=== PATIENT | male | born 1935 | race Caucasian/White ===

== ENCOUNTER 2024-02-13 08:40 | Emergency (ER) | payer OTHER, SELFPAY ==
--- NOTE | 2024-02-13 09:01 | XR_ITS ---
WS: [id number] Portable AP upright chest, 02/13/2024 Clinical Data: Screening Comparison: None. Findings: No nodules, masses or effusions are seen. The heart is normal. The pulmonary vascularity is not increased. No pneumonia or pneumothorax is seen. The diaphragms are flattened. The aortic arch a nd descending thoracic aorta show calcification and tortuosity. Impression: Hyperinflation and atherosclerosis.
[2024-02-13 09:10] VITALS: BP 136/74; PULSE 61; RESP 15; O2SAT 92
--- NOTE | 2024-02-13 09:26 | ED.C_ITS ---
HPI - Psych 2 General: Chief Complaint: Psychiatric Symptoms Stated Complaint: combative Time Seen by Provider: 02/13/24 09:01 Source: patient Mode of arrival: ambulatory History of Present Illness: 88-year-old male with a history of demen tia has been aggressive and combative at times. Has been hitting staff and other residents resistive to care not taking his medications. Patient arrives here he is not combative or aggressive he does not answer any questions he will whisper a few answers and shake his head yes and no but most of the time he is just not conversive. He denies chest or abdominal pain. He was recently in [facility] in [place] discharge while there of the report was that he did not have any behavioral issues but began to have behavioral issues and refused to take his medicines when he [facility] the [facility] reports are seeking other placement for him. History of same: Yes Relieving factors: none Exacerbating factors: none Review of Systems 2 Const: Denies: fever(s), chills, body aches, change in appetite, fatigue or malaise ENMT: Denies: throat pain, ear or mastoid pain, nasal discharge or nasal congestion Card: Denies: chest pain, edema, dyspnea on exertion or orthopnea Resp: Denies: dyspnea, productive cough or non-productive cough GI: Denies: abdominal pain, nausea, vomiting, hematemesis, coffee ground emesis, diarrhea, constipation, bloating, hematochezia or melena : Denies: flank pain, dysuria, urinary frequency or urinary urgency Skin/Breast: Denies: rash or pruritus Physical Exam 2 Const: COMMON NORMALS: no acute distress GENERAL APPEARANCE: comfortable ORIENTATION/CONSCIOUSNESS: Yes awake HENMT: COMMON NORMALS: normocephalic, atraumatic, hearing grossly normal bilaterally, external ears normal, EAC's normal, TM's normal bilaterally, Normal nasal mucous membranes and turbinates present, moist oral mucous membranes and oropharynx normal HEAD & SCALP: normocephalic and atraumatic NOSE: Normal nasal mucous membranes and turbinates present EXTERNAL EAR: Yes external ears normal EXTERNAL AUDITORY CANAL: EAC's normal TYMPANIC MEMBRANE: TM's normal bilaterally Eye: COMMON NORMALS: Equal, round and reactive pupils present, EOMs intact bilaterally, conjunctivae normal and no scleral icterus CONJUNCTIVA: Yes conjunctivae normal PUPIL: Yes Equal, round and reactive pupils present Neck/C-Spine: COMMON NORMALS: full ROM, no lymphadenopathy, supple and no JVD Lymph: LYMPHATIC: no lymphadenopathy noted and no lymphedema noted Resp: COMMON NORMALS: normal respiratory effort, No retractions, No use of accessory muscles and clear to auscultation bilaterally AUSCULTATION: clear to auscultation bilaterally Cardio: COMMON NORMALS: no JVD, regular rate, regular rhythm and No murmurs present (Cardio) RATE: regular rate RHYTHM: regular rhythm GI: COMMON NORMALS: Soft to palpation and No hepatosplenomegaly present A USCULTATION: Yes normoactive bowel sounds PALPATION: Yes Soft to palpation, No Tenderness to palpation present (GI), No Guarding due to palpation present (GI) and Yes No hepatosplenomegaly present Extremity: COMMON NORMALS: normal to inspection, capillary refill normal, no clubbing, cyanosis or edema, no calf tenderness and no pedal edema Skin: COMMON NORMALS: no rashes or lesions noted GENERAL SKIN EXAM: no rashes or lesions noted Course 2 Vital Signs: Vital signs: Vital Signs Pulse Rate 71 02/13/24 18:45 Respiratory Rate 16 02/13/24 18:45 Blood Pressure 152/75 02/13/24 18:45 Pulse Oximetry 93 02/13/24 18:45 Oxygen Delivery Me thod Room Air 02/13/24 09:10 MDM - Psych Medical Decision Making Dementia with behavioral disturbances. Patient given Geodon here after arrival. He would not take any oral medications. After prolonged ER stay while we are looking for placement ultimately [facility] did except the patient. He was also given a single dose of Haldol just prior to transport. Patient transferred to [facility] for geriatric psych he iatric services via [facility] ambulance Medical Records I reviewed the patient's medical records. Lab Data I reviewed the patient's lab results. 02/13/24 09:54 02/13/24 09:54 Laboratory Results WBC 7.58 10^3/uL (3.29-11.43) 02/13/24 09:54 RBC 3.82 10^6/uL (3.85-5.65) L 02/13/24 09:54 Hgb 10.90 g/dL (11.27-16.99) L 02/13/24 09:54 Hct 35.5 % (37-53) L 02/13/24 09:54 MCV 92.9 fl (82-101) 02/13/24 09:54 MCH 28.5 pg (27-33) 02/13/24 09:54 MCHC 30.7 g/dL (30-55) 02/13/24 09:54 RDW 14.6 % (12.1-15.1) 02/13/24 09:54 Plt Count 190 10^3/cmm (157-399) 02/13/24 09:54 MPV 9.6 fL (7.4-10.4) 02/13/24 09:54 Neut % (Auto) 76.8 % 02/13/24 09:54 Lymph % (Auto) 10.3 % 02/13/24 09:54 Ada % (Auto) 6.1 % 02/13/24 09:54 Eos % (Auto) 6.1 % 02/13/24 09:54 Baso % (Auto) 0.4 % 02/13/24 09:54 Neut # (Auto) 5.83 10^3/uL (1.8-7.7) 02/13/24 09:54 Lymph # (Auto) 0.8 10^3/uL (0.8-4.8) 02/13/24 09:54 Ada # (Auto) 0.5 10^3/uL (0.2-0.9) 02/13/24 09:54 Eos # (Auto) 0.5 10^3/uL (0.0-0.8) 02/13/24 09:54 Baso # (Auto) 0.0 10^3/uL (0.0-0.1) 02/13/24 09:54 Nucleated RBC % (auto) 0 % 02/13/24 09:54 Nucleated RBCs # 0.0 /100WBC 02/13/24 09:54 Sodium 139 mmol/L (136-145) 02/13/24 09:54 Potassium 4.4 mmol/L (3.5-5.1) 02/13/24 09:54 Chloride 106 mmol/L (98-107) 02/13/24 09:54 Carbon Dioxide 28 mmol/L (22-29) 02/13/24 09:54 Anion Gap 9.4 (5-19) 02/13/24 09:54 BUN 18 mg/dL (8-23) 02/13/24 09:54 Creatinine 0.8 mg/dL (0.7-1.2) 02/13/24 09:54 GFR Calculation Not Reportable 02/13/24 09:54 Glucose 110 mg/dL (65-115) 02/13/24 09:54 Calculated Osmolality 291 mOsm/kg (285-295) 02/13/24 09:54 Calcium 8.5 mg/dL (8.5-10.5) 02/13/24 09:54 Total Bilirubin 0.4 mg/dL (0.15-1.2) 02/13/24 09:54 AST 10 U/L (0-40) 02/13/24 09:54 ALT 6 U/L (0-41) 02/13/24 09:54 Alkaline Phosphatase 78 U/L (40-130) 02/13/24 09:54 Total Protein 6.1 g/dL (6.6-8.7) L 02/13/24 09:54 Albumin 3.4 g/dL (3.5-5.2) L 02/13/24 09:54 Globulin 2.7 g/dL (1.3-4.6) 02/13/24 09:54 TSH 2.83 uIU/mL (0.27-4.20) 02/13/24 09:54 Urine Color Straw (Yellow) 02/13/24 14:49 Urine Appearance Clear (CLEAR) 02/13/24 14:49 Urine pH 6 (5-7) 02/13/24 14:49 Ur Specific [place] 1.010 (1.005-1.030) 02/13/24 14:49 Urine Protein Neg (Negative) 02/13/24 14:49 Urine Glucose (UA) Norm (Normal) 02/13/24 14:49 Urine Ketones Negative (Negative) 02/13/24 14:49 Urine Blood Neg (Negative) 02/13/24 14:49 Urine Nitrate Negative (Negative) 02/13/24 14:49 Urine Bilirubin Neg (Negative) 02/13/24 14:49 Urine Urobilinogen Norm mg/dL (Negative) 02/13/24 14:49 Ur Leukocyte Esterase Negative (Negative) 02/13/24 14:49 Salicylates < 0.3 mg/dL (3-10) L 02/13/24 09:54 Urine Opiates Screen Negative ng/mL (Negative) 02/13/24 14:49 Acetaminophen < 5.0 ug/mL (10-30) L 02/13/24 09:54 Ur Barbiturates Screen Negative ng/mL (Negative) 02/13/24 14:49 Ur Phencyclidine Scrn Negative ng/mL (Negative) 02/13/24 14:49 Ur Amphetamines Screen Negative ng/mL (Negative) 02/13/24 14:49 U Benzodiazepines Scrn Negative ng/mL (Negative) 02/13/24 14:49 Urine Cocaine Screen Negative ng/mL (Negative) 02/13/24 14:49 U Marijuana (THC) Screen Negative ng/mL (Negative) 02/13/24 14:49 Ethyl Alcohol < 10 mg/dL (0-10) 02/13/24 09:54 Adenovirus (PCR) Not detected (NOT DETECT) 02/13/24 09:14 C. pneumoniae DNA (PCR) Not detected (NOT DETECT) 02/13/24 09:14 Coronavirus 229E (PCR) Not detected (NOT DETECT) 02/13/24 09:14 Human Metapneumovir PCR Not detected (NOT DETECT) 02/13/24 09:14 Influenza A (H1) PCR Not detected (NOT DETECT) 02/13/24 09:14 Influ A (H1/09) PCR Not detected (NOT DETECT) 02/13/24 09:14 Influenza A (H3) PCR Not detected (NOT DETECT) 02/13/24 09:14 Influenza Type A (PCR) Not detected (NOT DETECT) 02/13/24 09:14 Influenza Type B (PCR) Not detected (NOT DETECT) 02/13/24 09:14 M. pneumoniae (PCR) Not detected (NOT DETECT) 02/13/24 09:14 Parainfluenza 1 (PCR) Not detected (NOT DETECT) 02/13/24 09:14 Parainfluenza 2 (PCR) Not detected (NOT DETECT) 02/13/24 09:14 Parainfluenza 3 (PCR) Not detected (NOT DETECT) 02/13/24 09:14 Parainfluenza 4 (PCR) Not detected (NOT DETECT) 02/13/24 09:14 RSV Antigen Negative (Negative) 02/13/24 09:14 RSV Type A (PCR) Not detected (NOT DETECT) 02/13/24 09:14 RSV Type B (PCR) Not detected (NOT DETECT) 02/13/24 09:14 Entero/Rhino (PCR) Not detected (NOT DETECT) 02/13/24 09:14 SARS-CoV-2 (PCR) Not detected (NOT DETECT) 02/13/24 09:14 SARS-CoV-2 Ag (Rapid) negative (Negative) 02/13/24 09:14 All radiology interpretation(s) finalized by discharge Discharge Plan Discharge Patient Disposition: Transfer to ED Clinical Impression: Dementia with behavioral problem Condition: Stable Prescriptions: No Action tamsulosin 0.4 mg capsule 0.4 mg PO QAM risperidone 1 mg/mL solution See Rx Instructions .ROUTE .COMPLEX Rx Instructions: GIVE 0.25ML BY MOUTH TWICE DAILY AND 0.75ML AT BEDTIME. albuterol sulfate 90 mcg/actuation HFA aerosol inhaler 1 - 2 puff INHALATION Q4H PRN (Reason: Shortness Of Breath) Milk of Magnesia 400 mg/5 mL Suspension 30 ml PO DAILY PRN (Reason: Constipation) Colace 100 mg Capsule 100 mg PO BID Miralax 17 gram/dose Powder See Rx Instructions .ROUTE .COMPLEX Rx Instructions: TAKE 1 CAPFUL (17GM) DISSOLVE IN 4 TO 8 OUNCES LIQUID AND DRINK ENTIRE LIQUID DAILY. Narcan Prefilled 0.4 mg/mL Syringe 0.4 mg IM Q2M PRN (Reason: Opioid Overdose) Rx Instructions: NTExceed 10 mg total dose/episode acetaminophen 160 mg/5 mL Elixir 640 mg PO TID Referrals: Oscar Gardner DO [Primary Care Provider] - Coding Level of Care Code ED Software Asset Management Analyst for Manj[facility] Blunt
[2024-02-13 09:48] LABS: SARS Covid-2 Antigen negative (Negative)
[2024-02-13 09:54] LABS: RSV Transfer Patient (ED) Negative (Negative)
[2024-02-13 10:00] LABS: Basophils % 0.4 %; Eosinophils # 0.5 10^3/uL (0.0-0.8); Eosinophils % 6.1 %; Hematocrit 35.5 % (37-53); Lymphocytes # 0.8 10^3/uL (0.8-4.8); Lymphocytes % 10.3 %; Mean Corpuscular HGB Conc 30.7 g/dL (30-55); Mean Corpuscular Hemoglobin 28.5 pg (27-33); Mean Corpuscular Volume 92.9 fl (82-101); Mean Platelet Volume 9.6 fL (7.4-10.4); Monocytes # 0.5 10^3/uL (0.2-0.9); Monocytes % 6.1 %; Neutrophils # 5.83 10^3/uL (1.8-7.7); Neutrophils % 76.8 %; Nucleated Red Blood Cells % 0 %; Platelet Count 190 10^3/cmm (157-399); Red Blood Count 3.82 10^6/uL (3.85-5.65); Red Cell Distribution Width 14.6 % (12.1-15.1); White Blood Count 7.58 10^3/uL (3.29-11.43)
[2024-02-13 10:41] LABS: Acetaminophen < 5.0 ug/mL (10-30); Alanine Aminotransferase 6 U/L (0-41); Albumin Level 3.4 g/dL (3.5-5.2); Alcohol Level < 10 mg/dL (0-10); Alkaline Phosphatase 78 U/L (40-130); Anion Gap 9.4 (5-19); Aspartate Amino Transferase 10 U/L (0-40); Blood Urea Nitrogen 18 mg/dL (8-23); Calcium 8.5 mg/dL (8.5-10.5); Carbon Dioxide 28 mmol/L (22-29); Chloride 106 mmol/L (98-107); Globulin 2.7 g/dL (1.3-4.6); Glucose 110 mg/dL (65-115); Osmolality Calculated 291 mOsm/kg (285-295); Potassium 4.4 mmol/L (3.5-5.1); Salicylate < 0.3 mg/dL (3-10); Sodium 139 mmol/L (136-145); Thyroid Stimulating Hormone 2.83 uIU/mL (0.27-4.20); Total Bilirubin 0.4 mg/dL (0.15-1.2); Total Protein 6.1 g/dL (6.6-8.7)
--- NOTE | 2024-02-13 12:25 | ECG_ITS ---
[facility] Test Date: 2024-02-13 Pat Name: Orlando De Oliveira Department: Room: Gender: Male [employer]: : 1935 Requested By: Broderick Leyva Order Number: [id number] Burton MD: London Richmond M.D. Measurements Intervals [place] Rate: 63 P: 73 HI: 184 QRS: 261 QRSD: 128 T: 76 QT: 433 QTc: 446 Interpretive Statements SINUS RHYTHM INDETERMINATE AXIS RIGHT BUNDLE BRANCH BLOCK [120+ ms QRS DURATION, UPRIGHT V1, 40+ ms S IN I/aVL/V4/V5/V6] POSSIBLE SEPTAL MYOCARDIAL INFARCTION , OF INDETERMINATE AGE [30 ms Q WAVE IN V1/V2] Compared to ECG 08/06/2017 14:08:48 Right bundle-branch block now present Myocardial infarct finding now present Sinus bradycardia no longer present Electronically Signed On 02-13-2024 16:48:50 CDT by London Richmond M.D. [email or web address]
[2024-02-13] MEDS: ziprasidone 20 mg/mL SDV 10 MG IM (12:51)
[2024-02-13] MEDS: water for injection-sterile 10 ML (12:54)
[2024-02-13 15:06] LABS: Add Urine Microscopic? NO; Charge for UA Resulting for Rev
[2024-02-13 15:10] LABS: Bilirubin Urine Neg (Negative); Blood Urine Neg (Negative); Glucose Urine UA Norm (Normal); Ketones Urine Negative (Negative); Leukocyte Esterase Urine Negative (Negative); Nitrate Urine Negative (Negative); Protein Urine Neg (Negative); Urine Appearance Clear (CLEAR); Urine Color Straw (Yellow); Urobilinogen Urine Norm (Negative); pH Urine 6 (5-7)
[2024-02-13 15:17] LABS: Amphetamines Screen Urine Negative (Negative); Barbiturates Screen Urine Negative (Negative); Benzodiazepines Screen Urine Negative (Negative); Cocaine Screen Urine Negative (Negative); Opiate Screen Urine Negative (Negative); PCP Screen Urine Negative (Negative); THC Screen Urine Negative (Negative)
[2024-02-13 16:56] LABS: Adenovirus Not Detected (NOT DETECT); Chlamydia Pneumoniae Not Detected (NOT DETECT); Coronavirus 229E,HKU1,NL63,OC4 Not Detected (NOT DETECT); Human Metapneumovirus Not Detected (NOT DETECT); Human Rhinovirus/Enterovirus Not Detected (NOT DETECT); Influenza A Not Detected (NOT DETECT); Influenza A H1 Not Detected (NOT DETECT); Influenza A H1-2009 Not Detected (NOT DETECT); Influenza A H3 Not Detected (NOT DETECT); Influenza B Not Detected (NOT DETECT); Mycoplasma Pneumoniae Not Detected (NOT DETECT); Parainfluenza Virus Type 1 Not Detected (NOT DETECT); Parainfluenza Virus Type 2 Not Detected (NOT DETECT); Parainfluenza Virus Type 3 Not Detected (NOT DETECT); Parainfluenza Virus Type 4 Not Detected (NOT DETECT); Respiratory Syncytial Virus A Not Detected (NOT DETECT); Respiratory Syncytial Virus B Not Detected (NOT DETECT); SARS-COV-2 Not Detected (NOT DETECT)
[2024-02-13 18:45] VITALS: BP 152/75; PULSE 71; RESP 16; O2SAT 93
== END 2024-02-13 20:51 ==
PROVIDERS: Emergency Provider Family Medicine; PCP Emergency Medicine Emergency Medical Services
DX: F03.918 Unspecified dementia, unspecified severity, with other behavioral disturbance (principal); Z11.52 Encounter for screening for COVID-19
CPT/HCPCS: 36415; 71045; 80053; 80306; 80307; 81003; 84443; 85025; 87426; 87486; 87581; 87633; 87899; 93005; 96372; 99285; J3486